=== PATIENT | male | born 1980 | race Caucasian/White ===

== ENCOUNTER 2023-04-20 09:48 | Emergency (ER) | payer BC, SELFPAY ==
[2023-04-20] VITALS (15 sets, daily range): BP systolic 144–180; BP diastolic 97–112; PULSE 87–101; RESP 13–24; TEMP 36.3; O2SAT 96–100
--- NOTE | ~2023-04-20 | CT_ITS ---
EXAMINATION: CT brain wo con DATE: 04/20/2023 10:48 INDICATION: Head injury. Seizure. TECHNIQUE: Computed tomography (CT) of the head was performed without intravenous contrast. The mA wa s adjusted according to patient size. Iterative reconstruction technique was employed. The dose-lengt h product was 605.33 mGy-cm. COMPARISON: None FINDINGS: There is no intracranial hemorrhage, acute infarction, or abnormal intracranial mass lesion . The ventricles are normal in size. The orbits are normal. The paranasal sinuses are clear. The mast oid air cells are normal. IMPRESSION: 1. Normal brain. Reviewed, dictated and finalized at location A. ETIC MANAGER IMPRESSION: 1. Normal brain.
--- NOTE | ~2023-04-20 | XR_ITS ---
EXAMINATION: XR chest 2V DATE: 04/20/2023 10:56 INDICATION: Syncope. TECHNIQUE: Frontal and lateral views of the chest were obtained. COMPARISON: Chest 2 views 01/19/2014 FINDINGS: There is no pneumonia, pleural effusion, or pneumothorax. The heart size is normal. There i s mild chronic anterior wedging of T12 vertebral body. IMPRESSION: 1. No acute cardiopulmonary disease. Reviewed, dictated and finalized at location A. HOSTLER
--- NOTE | 2023-04-20 10:19 | ECG_ITS ---
Measurements Intervals [place] Rate: 91 P: 119 TN: 168 QRS: 173 QRSD: 90 T: 149 QT: 347 QTc: 428 Interpretive Statements SINUS RHYTHM LIMB LEAD REVERSAL EARLY PRECORDIAL R/S TRANSITION BORDERLINE ECG NO PREVIOUS ECG AVAILABLE FOR COMPARISON Electronically Signed On 04-20-2023 11:37:02 [employer] by Matt Escobar D.O.
[2023-04-20 10:44] LABS: Basophils Percent Auto 0.6 % (0.2-1.2); Eosinophils Absolute Auto 0.2 K/mm3 (0-0.3); Eosinophils Percent Auto 2.3 % (0-4.4); Hemoglobin 14.2 g/dL (14.0-18.0); Immature Granulocyte Absolute 0.01 K/mm3 (0.00-0.031); Immature Granulocyte Percent A 0.1 % (0-0.5); Lymphocytes Absolute Auto 1.42 K/mm3 (0.9-3.2); Lymphocytes Percent Auto 20.7 % (18.3-44.2); Mean Corpuscular HGB Conc 33.8 g/dl (32-36); Mean Corpuscular Hemoglobin 28.6 pg (26-34); Mean Corpuscular Volume 84.7 fl (80-100); Monocytes Absolute Auto 0.5 K/mm3 (0.1-0.6); Monocytes Percent Auto 7.6 % (2.6-8.5); Neutrophils Absolute Auto 4.7 K/mm3 (1.3-6.7); Neutrophils Percent Auto 68.7 % (45.5-73.1); Platelet Count Result 286 k/mm3 (150-375); Red Blood Count 4.96 M/mm3 (4.6-6.20); Red Cell Distribution Width 13.2 % (11.5-14.5); White Blood Count 6.9 K/mm3 (4.5-10.0)
--- NOTE | 2023-04-20 10:52 | ED.GENADULT ---
HPI - General Adult General Chief complaint: Syncope Stated complaint: PASSED OUT THIS WEEKEND. ?SZ Time Seen by Provider: 04/20/23 10:02 History of Present Illness HPI narrative: Patient is a 43-year-old male who presents ER for further evaluation after losing consciousness. Occurred 2 nights ago. Patient got up in the middle of the night when he felt dizzy and was trying to use restroom. He then regained consciousness on the ground with his head inside of a trash can. Since then he has had mild headache as well as some neck discomfort. He urinated on himself but he is unsure if that occurred just because he was using the restroom. He had no tongue biting. No history of seizures. Denies drug use. Reports normal eating and drinking. PCP concerned about possible seizure so sent him here for evaluation. Related Data Allergies Allergy/AdvReac Type Severity Reaction Status Date / Time No Known Allergies Allergy Verified 04/20/23 09:55 Review of Systems Review of Systems: All systems reviewed & are unremarkable except as noted in HPI and below Constitutional: Constitutional: Reports no additional constitutional complaints ENT: Reports system reviewed and no additional complaints, except as documented Cardiovascular: Cardiovascular: Reports no additional cardiovascular complaints Respiratory: Respiratory: Reports no additional respiratory complaints Gastrointestinal: Gastrointestinal: Reports no additional gastrointestinal complaints Musculoskeletal: Musculoskeletal: Denies back pain, Denies arthralgias and Denies joint swelling Comments: Neck aching in the shoulders Neurologic: Reports syncope, Reports headache(s), Denies focal weakness and Denies numbness PMFSH Past Medical History Medical History (Updated 04/20/23 @ 11:51 by Smith Matthews MD) Depression Surgical History Surgical History (System 06/06/19 @ 08:44 by Kaylee Art) H/O: vasectomy (~2018) Hx of LASIK (~2019) Family History Family History (System 06/06/19 @ 08:44 by Kaylee Art) Mother Depression Diabetes mellitus Father Heart disease Depression Social History Social History (System 06/06/19 @ 08:44 by Kaylee Art) Smoking status: Never smoker Second hand tobacco smoke exposure: No Alcohol intake: current Exam Narrative: GENERAL: Well-appearing, well-nourished, and in no acute distress. HEAD: Normocephalic, atraumatic. EYES: PERRL and EOMI. ENT: Mucous membranes moist. TMs normal bilaterally. Normal tongue. NECK: Supple. No midline tenderness of the cervical spine. Mild tenderness in the trapezius musculature bilaterally. CHEST: Clear to auscultation. No respiratory distress. HEART: Regular rate and rhythm. Normal peripheral pulses. ABDOMEN: Soft, nontender, nondistended. EXTREMITIES: Normal range of motion. No edema. NEURO: Alert and oriented x3. PSYCH: Normal mood and affect. Course Course Emergency Course: Labs and imaging unremarkable. Patient felt appropriate for discharge. Suspect syncope over seizure. Vital Signs Vital signs: Vital Signs Temperature 97.3 F L 04/20/23 09:51 Pulse Rate 97 04/20/23 09:51 Respiratory Rate 16 04/20/23 09:51 Blood Pressure 180/103 H 04/20/23 09:51 Pulse Oximetry 100 04/20/23 09:51 Temperature 97.3 F L 04/20/23 09:51 Pulse Rate 89 04/20/23 12:00 Respiratory Rate 15 04/20/23 12:00 Blood Pressure 144/99 H 04/20/23 12:00 Pulse Oximetry 98 04/20/23 12:00 Oxygen Delivery Room Air 04/20/23 10:08 Medical Decision Making Vital Signs Vital Signs: Vital Signs Temperature 97.3 F L 04/20/23 09:51 Pulse Rate 97 04/20/23 09:51 Respiratory Rate 16 04/20/23 09:51 Blood Pressure 180/103 H 04/20/23 09:51 Pulse Oximetry 100 04/20/23 09:51 Temperature 97.3 F L 04/20/23 09:51 Pulse Rate 89 04/20/23 12:00 Respiratory Rate 15 04/20/23 12:00 Blood Pressure 144/99 H 04/20/23
[2023-04-20 11:01] LABS: Alanine Aminotransferase 27 U/L (6-50); Albumin Level 4.4 g/dL (3.5-5.1); Alkaline Phosphatase 79 U/L (38-126); Anion Gap 10 mmol/L (8-16); Aspartate Amino Transferase 26 U/L (17-59); Bilirubin,Total 0.5 mg/dL (0.2-1.3); Blood Urea Nitrogen 8 mg/dL (9-20); Calcium 9.1 mg/dL (8.4-10.2); Carbon Dioxide 28 mmol/L (22-30); Chloride 101 mmol/L (98-107); Estimated CRCL calculation 163 ml/min; Estimated Glomerular Filt Rate > 60; Glucose 99 mg/dL (65-110); Potassium 3.9 mmol/L (3.4-5.0); Sodium 139 mmol/L (137-145)
== END 2023-04-20 12:01 | disposition home or self-care (01) ==
PROVIDERS: Emergency Provider Emergency Medicine; PCP Family Medicine
DX: R55 Syncope and collapse (principal); R94.31 Abnormal electrocardiogram [ECG] [EKG]
CPT/HCPCS: 36415; 70450; 71046; 80053; 85025; 93005; 99284